=== PATIENT | male | born 1990 | race Caucasian/White ===

== ENCOUNTER 2021-10-20 14:07 | Emergency (ER) | payer OTHER ==
[2021-10-20 15:23] LABS: BILIRUBIN NEGATIVE (NEGATIVE); BLOOD 3+ Ery/uL (NEGATIVE); CLARITY CLEAR (CLEAR); COLOR YELLOW (YELLOW); GLUCOSE (U) TRACE mg/dL (NORMAL); LEUKOCYTES NEGATIVE Leu/uL (NEGATIVE); NITRITE NEGATIVE (NEGATIVE); PROTEIN 2+ mg/dL (NEGATIVE); SPECIFIC GRAVITY >=1.030 (1.001-1.030); UROBILINOGEN 0.2 mg/dL (0.2-1.0); pH 5.5 (5.0-9.0)
[2021-10-20 15:24] LABS: BASOPHIL 0.2 % (0-2); EOSINOPHIL 0.5 % (0-5); HCT 38.1 % (42.0-52.0); HGB 13.3 g/dl (13.2-18.0); LYMPHOCYTE 19.7 % (15-48); MCH 28.5 pg (25.0-31.0); MCHC 34.9 g/dL (32.0-36.0); MCV 81.6 fL (78.0-100.0); MONOCYTE 8.5 % (0-12); MPV 12.8 fL (6.0-9.5); NEUTROPHIL 70.8 % (41-80); NRBC 0; RBC 4.67 M/uL (4.70-6.00); RDW 13.2 % (11.5-14.0); WBC 9.2 K/uL (4.0-10.5)
[2021-10-20 15:29] LABS: AMPHETAMINES POSITIVE (NEGATIVE); BARBITURATES NEGATIVE (NEGATIVE); ECSTASY (MDMA) NEGATIVE (NEGATIVE); MARIJUANA (THC) NEGATIVE (NEGATIVE); METHADONE NEGATIVE (NEGATIVE); OPIATES NEGATIVE (NEGATIVE); OXYCODONE NEGATIVE (NEGATIVE)
[2021-10-20 15:34] LABS: AMORPHOUS URATES CRYSTALS TRACE; BACTERIA TRACE
[2021-10-20 15:41] LABS: PLT 74 K/uL (150-400)
[2021-10-20 15:53] LABS: ALBUMIN 4.4 g/dL (3.4-5.0); ALKALINE PHOSHATASE 53 U/L (46-116); ALT 1308 U/L (16-63); AST >2000 U/L (15-37); BILIRUBIN - TOTAL 0.9 mg/dL (0.2-1.0); CHLORIDE 89 mmol/L (98-107); CO2 (BICARBONATE) 22 mmol/L (21-32); CREATININE 8.67 mg/dL (0.67-1.17); GLOBULIN (CALCULATION) 2.9 g/dL; GLUCOSE 94 mg/dL (74-106); LIPASE 186 U/L (73-393); POTASSIUM 4.1 mmol/L (3.5-5.1); TOTAL PROTEIN 7.3 g/dL (6.4-8.2)
[2021-10-20 16:26] LABS: BUN 106 mg/dL (7-18)
[2021-10-20 17:10] LABS: INR 1.12 (0.9-1.2); PROTHROMBIN TIME 13.8 SECONDS (11.8-13.4)
[2021-10-22 08:10] LABS: HBSAG SCREEN Negative (Negative); HEP A AB, IGM Negative (Negative); HEP B CORE AB, IGM Negative (Negative); HEP C VIRUS AB >11.0 (0.0-0.9)
== END 2021-10-21 04:00 | disposition other institution (70) ==
LOC: FER 14:07
PROVIDERS: Emergency Medicine; Physician Assistant
DX: N17.9 Acute kidney failure, unspecified (principal); E86.0 Dehydration; R11.2 Nausea with vomiting, unspecified; R94.5 Abnormal results of liver function studies; D69.6 Thrombocytopenia, unspecified; Z20.822 Contact with and (suspected) exposure to COVID-19
CPT/HCPCS: 36415; 36600; 72128; 72131; 73130; 80053; 80074; 80305; 81001; 82803; 83690; 85025; 85610; J1170; J1885; J2405; J2543; J2930; J7030; U0002